=== PATIENT | male | born 2000 | race African-American/Black ===

== ENCOUNTER 2019-01-17 08:38 | Emergency (ER) | payer SELFPAY ==
[~2019-01-17] VITALS: Ht 162.6 cm; Wt 72.0 kg
[2019-01-17] MEDS ORDERED: KETOROLAC 30MG/ML VIAL IV STA (10:17)
[2019-01-17] MEDS ORDERED: ONDANSETRON HCL 4MG/2ML INJ IV STA (10:17)
[2019-01-17 11:00] LABS: HEMATOCRIT. 52.5 % (42.0-52.0); MEAN CORPUSCULAR HEMOGLOBIN 32.6 pg (28.0-32.0); MEAN CORPUSCULAR VOLUME 95.4 fL (80.0-94.0); MEAN PLATELET VOLUME 8.4 fl (7.4-10.4); PLATELET 256 x1000/uL (130-400); RED BLOOD CELL COUNT 5.51 mill/uL (4.7-6.1); RED CELL DISTRIBUTION WIDTH 13.4 % (11.6-14.6)
[2019-01-17 11:03] LABS: CHLORIDE 103 mEq/L (98-107)
[2019-01-17 11:04] LABS: INR 1.1; PROTHROMBIN TIME 10.9 sec (9.6-11.0)
[2019-01-17 12:13] VITALS: BP 127/69
[2019-01-17 12:41] LABS: PLATELET ESTIMATE NORMAL
== END 2019-01-17 12:18 | disposition home or self-care (01) ==
LOC: ER 08:38
DX: R10.13 Epigastric pain (principal); R11.2 Nausea with vomiting, unspecified; R19.7 Diarrhea, unspecified; F12.10 Cannabis abuse, uncomplicated; F17.200 Nicotine dependence, unspecified, uncomplicated
CPT/HCPCS: 36415; 80053; 83690; 85025; 85610; 96374; 96375; 99283; J1885; J2405

== ENCOUNTER 2019-10-15 13:53 | Emergency (ER) | payer MEDICAID ==
[~2019-10-15] VITALS: Ht 170.2 cm; Wt 58.9 kg
[2019-10-15] MEDS ORDERED: LORAZEPAM 0.5MG TABLET PO ONE (16:30)
[2019-10-15] MEDS ORDERED: MORPHINE SULFATE 10 MG/ML CPJ IM ONE (16:30)
[2019-10-15] MEDS ORDERED: LIDOCAINE HCL 1% 20ML VIAL (Pyxis) INJ INFIL ONE (17:00)
[2019-10-15 18:40] VITALS: BP 118/62
== END 2019-10-15 18:40 | disposition home or self-care (01) ==
LOC: ER 13:53
DX: M79.641 Pain in right hand (principal); F12.10 Cannabis abuse, uncomplicated
CPT/HCPCS: 29125; 73130; 96372; 99283; J2270; J3490